=== PATIENT | female | born 1970 | race Caucasian/White ===

== ENCOUNTER 2021-01-27 06:36 | Day surgery (SDC) | payer SELFPAY ==
[2021-01-22 17:10] VITALS: BMI 20.7
[2021-01-27] MEDS ORDERED: SEVOFLURANE 250 ML BTL ONE (07:03)
[2021-01-27] MEDS ORDERED: EPINEPHrine/PF 1 MG/1 ML (1:1,000) AMPULE ONE ×2 (07:12→07:31)
[2021-01-27] MEDS ORDERED: LIDOCAINE HCL 1%, 10 MG/ML (20ML VIAL) ONE ×4 (07:13→08:05)
[2021-01-27] MEDS ORDERED: BUPIVACAINE HCL/PF 2.5 MG/ML - 30 ML VIAL IJ ONE (07:13)
[2021-01-27] MEDS ORDERED: ceFAZolin SODIUM 1 GM VIAL ONE ×3 (07:37→12:36)
[2021-01-27] MEDS ORDERED: GENTAMICIN SO4 80 MG/2 ML VIAL ONE ×2 (07:37→12:36)
[2021-01-27] MEDS ORDERED: ONDANSETRON 4 MG/2 ML VIAL ONE (07:40)
[2021-01-27] MEDS ORDERED: fentaNYL CITRATE 250 MCG/5 ML VIAL ONE (07:40)
[2021-01-27] MEDS ORDERED: KETOROLAC TROMETHAMINE 30 MG/1 ML VIAL ONE (07:40)
[2021-01-27] MEDS ORDERED: DEXAMETHASONE SOD PHOSPHATE 4 MG/1 ML VIAL ONE (07:40)
[2021-01-27] MEDS ORDERED: ROCURONIUM BROMIDE 50 MG/5 ML SYRINGE ONE (07:41)
[2021-01-27] MEDS ORDERED: MIDAZOLAM HCL 2 MG/2 ML SINGLE DOSE VIAL ONE (07:41)
[2021-01-27] MEDS ORDERED: PROPOFOL 20 ML ONE ×7 (07:41→14:39)
[2021-01-27] MEDS ORDERED: SUCCINYLCHOLINE CHLORIDE 200 MG/10 ML SYRINGE ONE (07:41)
[2021-01-27] MEDS ORDERED: LIDOCAINE HCL 2% JELLY (5 ML/TUBE) ONE (07:42)
[2021-01-27] MEDS ORDERED: HALOPERIDOL LACTATE 5 MG/ML ONE (08:59)
[2021-01-27] MEDS ORDERED: oxyCODONE HCL 5 MG TABLET PO PRN ×2 (15:41)
[2021-01-27] MEDS ORDERED: ONDANSETRON 4 MG/2 ML VIAL IVPUSH PRN (15:41)
[2021-01-27] MEDS ORDERED: PROMETHAZINE HCL 25 MG/1 ML VIAL IVPUSH PRN (15:41)
[2021-01-27 15:58] VITALS: TEMP 97.1
[2021-01-27 19:01] VITALS: BP 104/62; PULSE 80
== END 2021-01-27 18:30 | disposition home or self-care (01) ==
LOC: FASU 06:36
PROVIDERS: ATTEND Surgery
CPT/HCPCS: 84703; 94760